=== PATIENT | female | born 2000 | race Caucasian/White ===

== ENCOUNTER 2020-06-23 18:04 | Emergency (ER) | payer OTHER, SELFPAY ==
--- NOTE | 2020-06-23 18:12 | ED.GENADULT ---
HPI - General Adult General Chief complaint: Skin/Abscess/Foreign Body Stated complaint: face swollen Time Seen by Provider: 06/23/20 18:19 Source: patient and RN notes reviewed Mode of arrival: ambulatory Limitations: no limitations History of Present Illness HPI narrative: 19-year-old female presents with concern for abscess, cellulitis in her right cheek. Reports she was seen in urgent care at [facility] this morning and given Bactrim. Reports she is taken 1 dose of Bactrim and symptoms did not improve, reports swelling got slightly worse. She denies fever, malaise, difficulty swallowing, swollen lips, swollen tongue. Denies any drainage from the site. complaint: abscess Related Data Home Medications Medication Instructions Recorded Confirmed No Home Medications 06/23/20 06/23/20 Allergies Allergy/AdvReac Type Severity Reaction Status Date / Time No Known Allergies Allergy Unverified 12/15/12 15:55 Review of Systems Review of Systems: Narrative: CONSTITUTIONAL: Denies malaise, chills, sweats, or fever. EYES: Denies visual changes, redness, or discharge. ENT: Denies rhinorrhea, congestion, sinus pain, otalgia or sore throat. CARDIOVASCULAR: Denies chest pain, palpitations. RESPIRATORY: Denies cough or dyspnea. SKIN: Reports abscess, redness, swelling in the right cheek MUSCULOSKELETAL: Denies myalgia. NEUROLOGIC: Denies numbness, weakness, or headache. All systems reviewed & are unremarkable except as noted in HPI and below PMFSH Social History Social History Gender identity (if verbalized by the patient): Female Comments At time of signature, agree with nursing past medical, surgical, social and family history. There is no relevant family history pertinent to the presenting complaint Exam Narrative: Exam Narrative: GENERAL: Well-appearing, well-nourished, and in no acute distress. HEAD: Normocephalic EYES: PERRLA, conjunctivae clear ENT: Nares clear. Mucous membranes moist. NECK: Supple. No lymphadenopathy. Carotids were easily palpable bilaterally. CHEST: No respiratory distress. Speaks in full sentences. HEART: Regular rate and rhythm. SKIN: Warm, dry, no rash. Palpable, mildly fluctuant abscess noted in the right cheek, palpable from the outer cheek in the inner cheek, surrounded by mild redness, warmth, induration NEURO: Alert and oriented x3. PSYCH: Normal mood and affect Course Course Emergency Course: Patient is aware of diagnosis, understands and agrees to treatment plan. Anticipatory guidance given. Patient agrees to follow-up as directed and is aware of reasons to seek care at the emergency department. Portions of this record may have been created with voice recognition software Vital Signs Vital signs: Vital Signs Temperature 98.4 F 06/23/20 18:18 Pulse Rate 84 06/23/20 18:18 Respiratory Rate 20 06/23/20 18:18 Blood Pressure 134/95 H 06/23/20 18:18 Pulse Oximetry 98 06/23/20 18:18 Temperature 98.4 F 06/23/20 18:18 Pulse Rate 84 06/23/20 18:18 Respiratory Rate 20 06/23/20 18:18 Blood Pressure 134/95 H 06/23/20 18:18 Pulse Oximetry 98 06/23/20 18:18 Reviewed. Patient has been instructed to follow up with her primary care provider within the next week regarding her elevated blood pressure today. Procedures Abscess I/D face: Date of Incision: 06/23/20 Time of Incision: 18:25 Side (if applicable): right Local Anesthetic: lidocaine 1% Amount of anesthesia used (mL): 0.5 Technique: incised with #11 blade Amount of fluid expressed (mL): 1 Irrigation: No Packing used?: none I&D Results: Pus and Blood Abcess I&D Additional Comments: Small incision made, closed with a Steri-Strip Medical Decision Making MDM Narrative Medical decision making narrative: Verbal consent were obtained. The indication for the procedure was clinical suspicion for an abscess. The region was anesthetiz
[2020-06-23 18:18] VITALS: BP 134/95; PULSE 84; RESP 20; TEMP 36.9; O2SAT 98
== END 2020-06-23 18:48 | disposition home or self-care (01) ==
PROVIDERS: Emergency Provider Nurse Practitioner
DX: L02.01 Cutaneous abscess of face (principal)
CPT/HCPCS: 10060; 87070; 87147; 87186; 87205; 99212; G0463

== ENCOUNTER 2020-06-25 10:18 | Emergency (ER) | payer OTHER, SELFPAY ==
--- NOTE | 2020-06-25 10:27 | ED.GENADULT ---
HPI - General Adult General Chief complaint: Skin/Abscess/Foreign Body Stated complaint: swollen face Time Seen by Provider: 06/25/20 10:30 Source: patient and RN notes reviewed Mode of arrival: ambulatory Limitations: no limitations History of Present Illness HPI narrative: 19-year-old female presents with complaints of with redness, tenderness, and swelling to right cheek for the past 2 days. Camryn reports area to right cheek has improved and here for recheck prior to leaving for college. Has been following discharge instructions since treatment on 06/23/20 from [facility] as well as taking antibiotics as given per [facility]. Tender to touch. Intermittent drainage. No history of skin abscess. No fever or chills. No abdominal pain, nausea, and vomiting. Tolerating po intake well. LMP 06/24/20. Remains active. Tetanus up to date. The patient reports she have not been diagnosed with COVID-19. The patient reports she is not waiting for the results of a COVID-19 lab test. The patient reports she do not have weakness or fatigue. The patient reports she do not have a new or worsening cough or shortness of breath. Denies chest pain. The patient reports she do not have any rhinorrhea, congestion, sore throat, loss of taste, and diarrhea. Denies recent traveling. Denies concerns for COVID-19 or exposures been home with limited outdoor exposure except for essential household needs, work, and return home. At this time, patient is not suspected of having COVID-19. Some parts of this dictation were generated by voice recognition software and may contain typographical and/or grammatical inaccuracies. Related Data Home Medications Medication Instructions Recorded Confirmed sulfamethoxazole-trimethoprim 1 tablet BID 06/25/20 06/25/20 Allergies Allergy/AdvReac Type Severity Reaction Status Date / Time No Known Allergies Allergy Verified 06/25/20 10:27 Review of Systems Review of Systems: Narrative: CONSTITUTIONAL: Denies fever, chills, sweats. EYES: Denies visual changes, redness, discharge. ENT: Denies rhinorrhea, congestion, sore throat, otalgia. CARDIOVASCULAR: Denies chest pain, palpitations, edema. RESPIRATORY: Denies dyspnea, wheezing, cough. GASTROINTESTINAL: Denies abdominal pain, nausea, vomiting, diarrhea. SKIN: Denies rash or itching. Right cheek with redness, tenderness, swelling, and drainage. MUSCULOSKELETAL: Denies acute back pain, joint pain, or myalgia. NEUROLOGIC: Denies numbness or focal weakness. PSYCHIATRIC: Denies anxiety or depression. All systems reviewed & are unremarkable except as noted in HPI and below. [facility] Past Medical History Medical History (Updated 06/26/20 @ 00:00 by Ricardo Flores) Asthma Surgical History Surgical History (Updated 06/25/20 @ 11:37 by YAZMIN Cui) History of dental surgery History of tympanostomy Family History Family History (Updated 06/25/20 @ 11:37 by YAZMIN Cui) Father Alive and well Mother Alive and well Social History Social History (Updated 06/25/20 @ 11:38 by YAZMIN Cui) Smoking status: Former smoker Tobacco type: cigarettes Second hand tobacco smoke exposure: No Smoking end date: 03/13/20 Alcohol intake: current Substance use: never Living arrangements: with family Occupation/Education: student Gender identity (if verbalized by the patient): Female Comments At time of signature, I have reviewed and agree with nursing past medical, surgical, social, and family history. Please see nursing chart for further information. There is no relevant family history pertinent to the presenting complaint. Exam Narrative: Exam Narrative: GENERAL: This is a well-nourished, well-developed patient, anxious due to facial appearance due to abscess on face, in no apparent distress. Talking in full sentences without deficit and ambulate with steady gait without dyspnea. HEAD: Normocephal
[2020-06-25 10:28] VITALS: BP 119/82; PULSE 80; RESP 20; TEMP 37; O2SAT 97
== END 2020-06-25 10:56 | disposition home or self-care (01) ==
PROVIDERS: Emergency Provider Nurse Practitioner Family
DX: L02.01 Cutaneous abscess of face (principal); Z87.891 Personal history of nicotine dependence; J45.909 Unspecified asthma, uncomplicated
CPT/HCPCS: 99213; G0463